=== PATIENT | female | born 1970 | race Caucasian/White ===

== ENCOUNTER 2016-09-23 11:56 | Emergency (ER) | payer MEDICAID ==
[~2016-09-23] VITALS: Ht 162.6 cm; Wt 86.3 kg
[2016-09-23 14:12] VITALS: BP 114/74
== END 2016-09-23 14:48 | disposition home or self-care (01) ==
LOC: ED 11:56
DX: N39.0 Urinary tract infection, site not specified (principal); R68.89 Other general symptoms and signs
CPT/HCPCS: J1885

== ENCOUNTER 2020-01-18 23:43 | Emergency (ER) | payer MEDICAID ==
[~2020-01-18] VITALS: Ht 165.1 cm; Wt 81.6 kg
[~2020-01-18 23:43] MED LIST: AMO500 PO; BIA500 PO
[2020-01-18 23:45] VITALS: Ht 165.1 cm; Wt 81.6 kg
[2020-01-19 01:43] VITALS: BP 109/64
== END 2020-01-19 01:43 | disposition home or self-care (01) ==
LOC: ED 23:43
DX: G43.909 Migraine, unspecified, not intractable, without status migrainosus (principal)
CPT/HCPCS: J0780; J1885; J7030